=== PATIENT | female | born 1990 | race Asian ===

== ENCOUNTER 2025-08-26 22:25 | Inpatient (IN) | payer OTHER, SELFPAY ==
[2025-08-26 22:41] VITALS: BP 137/93; BMI 25.0
[2025-08-26 23:07] LABS: Hematocrit 34.7 % (37.0-47.0); Hemoglobin 11.8 g/dL (12.0-16.0); Mean Corp Hgb Conc. 34.0 g/dL (33.0-37.0); Mean Corpuscular Volume 85.9 fL (81.0-99.0); Nucleated Red Blood Cells % 0 %; Platelet Count 196 10^3/uL (130-400); Red Cell Dist. Width 13.4 % (11.5-14.5)
[2025-08-26 23:20] LABS: ALT (SGPT) 24 U/L (0-35); AST (SGOT) 31 U/L (14-36); Albumin 3.5 g/dl (3.5-5.0); Alkaline Phosphatase 174 U/L (38-126); Blood Urea Nitrogen 16 mg/dl (7-17); Calcium 8.9 mg/dl (8.4-10.2); Carbon Dioxide 18 mmol/L (22-30); Chloride 108 mmol/L (98-107); Estimated Creatinine Clearance 120 ml/min; Glucose 88 mg/dl (70-99); Potassium 4.8 mmol/L (3.5-5.1); Sodium 135 mmol/L (135-145); Total Protein 6.6 g/dl (6.3-8.2); eGFR > 60.00
[2025-08-26] MEDS: PENICILLIN 110 UNITS IV (23:33)
--- NOTE | 2025-08-27 03:01 | DOWNTIME ---
There was a [employer] Downtime on 08/27/2025 from 0100 to 08/27/2025 at 0255. Downtime documentation of patient's care, including medication administrations, has been reconciled in the electronic record per guidelines. Refer to the
patient's paper chart under the miscellaneous tab to see printed paper medication records and downtime forms.
[2025-08-27] MEDS: SUBLIMAZE 100 MCG EPIDURAL (03:07)
[2025-08-27] MEDS: FENTANYL/BUPIVACAINE 100 EPIDURAL ×2 (03:08→11:23)
[2025-08-27] MEDS: LR 1000 IV ×2 (03:25→11:23)
[2025-08-27] MEDS: PENICILLIN 55 UNITS IV ×3 (04:15→11:23)
[2025-08-27] MEDS: PITOCIN 30 UNITS/NSS 500 ML IV (06:14)
[2025-08-27] MEDS: PENICILLIN IV (18:54)
[2025-08-27] MEDS: COLACE 100 MG PO (21:05)
[2025-08-27] MEDS: MOTRIN 600 MG PO (21:33)
[2025-08-28] MEDS: MOTRIN 600 MG PO ×3 (04:06→20:42)
[2025-08-28 04:12] LABS: Hematocrit 29.9 % (37.0-47.0); Hemoglobin 9.9 g/dL (12.0-16.0)
[2025-08-28] MEDS: FEOSOL 325 MG PO (09:35)
[2025-08-28] MEDS: COLACE 100 MG PO ×2 (09:35→20:42)
[2025-08-29] MEDS: PRENATAL PLUS 1 TABLET PO (09:46)
[2025-08-29] MEDS: COLACE 100 MG PO (09:46)
[2025-08-29] MEDS: MOTRIN 600 MG PO (09:47)
[2025-08-29] MEDS: FEOSOL 325 MG PO (09:47)
[2025-08-29] MEDS: TYLENOL 650 MG PO (09:48)
[2025-08-29 16:34] LABS: Syphilis/T. pallidum Ab Reflex Negative (Negative)
== END 2025-08-29 12:25 | disposition home or self-care (01) | DRG 807 ==
LOC: LDRP 22:25
PROVIDERS: Student in an Organized Health Care Education/Training Program; ADMITTING PHYSICIAN Obstetrics & Gynecology
PROC: 0KQM0ZZ Repair Perineum Muscle, Open Approach (ICD-10-PCS; 2025-08-27)
PROC: 10E0XZZ Delivery of Products of Conception, External Approach (ICD-10-PCS; 2025-08-27)
DX: O99.824 Streptococcus B carrier state complicating childbirth (principal); Z37.0 Single live birth; O70.1 Second degree perineal laceration during delivery; Z3A.39 39 weeks gestation of pregnancy
CPT/HCPCS: 80053; 82570; 84156; 85014; 85018; 85025; 86780; 86850; 86900; 86901; 88307